=== PATIENT | male | born 1950 | race Caucasian/White ===

== ENCOUNTER → 2022-05-02 10:34 | Outpatient (CLI) | payer OTHER, SELFPAY ==
[2022-05-02 11:25] LABS: Influenza A - CEPHEID Flu A NEGATIVE (NEGATIVE); Influenza B - CEPHEID Flu B NEGATIVE (NEGATIVE); Respiratory Syncytial Virus Negative (Negative)
[2022-05-02 11:29] LABS: COVID-19 CEPHEID 4-PLEX PCR Negative (Negative)
== END ==
PROVIDERS: PCP Family Medicine; Visit Provider Physician Assistant Medical
DX: J06.9 Acute upper respiratory infection, unspecified (principal)
CPT/HCPCS: 0241U

== ENCOUNTER → 2022-05-10 07:13 | Outpatient (CLI) | payer OTHER, SELFPAY ==
[2022-05-10 08:03] LABS: Add Manual Diff / Slide Review NO; Basophils Absolute Auto 0 /uL (0-100); Basophils Percent Auto 0.6 % (0-2); Eosinophils Absolute Auto 200 /uL (0-450); Eosinophils Percent Auto 1.9 % (2-4); Hematocrit 42.1 % (41-53); Hemoglobin 14.5 g/dL (13.5-17.5); Lymphocytes Absolute Auto 2900 /uL (1100-4500); Lymphocytes Percent Auto 35.2 % (25-40); Mean Corpuscular HGB Conc 34.3 % (30-36); Mean Corpuscular Hemoglobin 31.6 PG (26-34); Monocytes Absolute Auto 700 /uL (0-900); Monocytes Percent Auto 8.9 % (3-14); Neutrophils Absolute Auto 4400 /uL (1500-7000); Neutrophils Percent Auto 53.4 % (50-75); Platelet Count 348 X10^3/uL (150-400); Red Blood Cell Count 4.58 X10^6/uL (4.5-5.9); Red Cell Distribution Width 13.6 % (11.6-14.8); White Blood Cell Count 8.2 X10^3/uL (4.5-11.0)
[2022-05-10 08:19] LABS: Hemoglobin A1C% w Est Avg Glu 5.7 % (4.0-6.0)
[2022-05-10 08:28] LABS: Alanine Aminotransferase 35 IU/L (<50); Albumin 4.4 g/dL (3.5-5.0); Albumin Globulin Ratio 1.5 (1.0-2.8); Alkaline Phosphatase 72 U/L (38-126); Aspartate Aminotransferase 29 IU/L (17-59); BUN Creatinine Ratio 11.9 (6-22); Bilirubin Total 0.8 mg/dL (0.2-1.3); Blood Urea Nitrogen 10 mg/dL (9-20); Calcium 9.5 mg/dL (8.4-10.2); Carbon Dioxide 27 mmol/L (22-32); Chloride 105 mmol/L (98-107); Cholesterol 143 mg/dL (140-199); Estimated Glomerular Filt Rate > 60 mL/min (>60); Globulin 2.9 g/dL (1.7-4.1); Glucose 102 mg/dL (80-110); HDL Cholesterol 44 mg/dL (40-60); HEMOLYSIS < 15 (0-50); LDL Cholesterol Calculated 67 mg/dL (<100); Potassium 4.5 mmol/L (3.4-5.1); Sodium 143 mmol/L (137-145); Total Protein 7.3 g/dL (6.3-8.2); Triglycerides 160 mg/dL (35-150)
[2022-05-10 08:58] LABS: Prostate Specific Antigen < 0.064 ng/mL (0.10-4.00)
== END ==
PROVIDERS: PCP Family Medicine; Referring Provider Family Medicine; Visit Provider Family Medicine
DX: E78.5 Hyperlipidemia, unspecified (principal); R73.03 Prediabetes; Z85.46 Personal history of malignant neoplasm of prostate; Z90.79 Acquired absence of other genital organ(s)
CPT/HCPCS: 36415; 80053; 80061; 83036; 84153; 85025

== ENCOUNTER → 2022-07-21 | Outpatient (CLI) | payer OTHER, SELFPAY ==
--- NOTE | 2022-07-21 23:40 | DI.NM.S_ITS ---
DATE OF SERVICE: 07/21/2022 PROCEDURE PERFORMED: Exercise treadmill stress and rest myocardial perfusion imaging with gating to assess ejection fraction and regional wall motion. ORDERING PROVIDER: Frank Pearson M.D. INDICATIONS: The patient is a 71-year-old hypertensive, hyperlipidemic male with atypical chest discomfort. CARDIAC STRESS: The patient was able to exercise for 6 minutes 21 seconds on a standard Byron protocol, suggesting mildly impaired exercise capacity with an JUNE of +9%, achieving 7.2 METS. He had a normal heart rate and blood pressure response to exercise, achieving a maximum heart rate of 151 bpm (100% of his predicted maximum). He had no chest discomfort or anginal symptoms. His resting ECG shows sinus rhythm with normal ST segments. There were no significant ST- segment shifts or arrhythmias with stress. At 5 minutes 15 seconds of exercise, at a heart rate of 142 bpm, 25.9 mCi of technetium-99m Myoview was injected and he was imaged 20 minutes later using a gated SPECT acquisition protocol. Earlier in the day while at rest, he had been injected with 12.6 mCi of technetium-99m Myoview was imaged 10 minutes later, again using a gated SPECT acquisition protocol. FINDINGS: 1. Raw data: There is good myocardial tracer uptake. The lung/heart ratio is normal at 0.26 with a normal TID ratio of 0.66. 2. Quantitated gated SPECT: Post stress ejection fraction is estimated at 85% without any focal wall motion abnormality. Resting ejection fraction is estimated at 72% with a normal at resting end-diastolic volume of 76 mL. 3. Myocardial perfusion imaging: Post stress supine images show a normal, uniform pattern of tracer activity without any perfusion defects, supported by normal perfusion imaging in the prone position. The resting images show an identical perfusion pattern without any areas of improvement. IMPRESSION: 1. Normal myocardial perfusion study. 2. No evidence of myocardial ischemia or previous myocardial infarction. 3. Normal left ventricular systolic function without focal wall motion abnormality. 4. Mildly impaired exercise capacity without angina or ECG evidence of ischemia. Juan Sanches - RS/janiya/ec doc#: [id number]/job#: [id number] dd: 07/21/2022 16:38:00 dt: 07/21/2022 23:14:00 DICTATING MD/COPIES TO: Lakhwinder Monzon MD; Frank Pearson M.D. COPIES MNE: ISAIAS
== END ==
PROVIDERS: Family Provider Family Medicine; PCP Family Medicine; Referring Provider Family Medicine; Visit Provider Family Medicine
DX: R07.89 Other chest pain (principal); I10 Essential (primary) hypertension; E78.5 Hyperlipidemia, unspecified
CPT/HCPCS: 78452; 93017; A9502

== ENCOUNTER 2022-07-28 13:45 | Outpatient (RCR) | payer OTHER, SELFPAY ==
--- NOTE | 2022-06-23 14:20 | PT.OPPOC ---
Physical, Occupational & Speech Therapy At [facility] Current Diagnoses Stress incontinence (female) (male) (06/23/22) Visit Care Team Role Provider Type Frank Pearson DO Family Provider Physician Primary Care Provider Specialty: Family Practice Address: [address] [place] [address], [id number] Email: Santana Mariscal MD Attending Provider Physician Referring Provider Specialty: Urology Address: [address] [place] [address], [address] Email: [email or web address] Plan Of Care PT-OP-T Assessment and Plan Start: 06/23/22 07:29 Freq: Status: Active Protocol: Document 06/23/22 11:15 AMB (Rec: 06/23/22 14:18 AMB [id number]) Physical Therapy Assessment Rehab Potential Rehabilitation Potential Good Evaluation Complexity Number of Personal Factors/Comorbidities 1-2 Number of Body Systems Impaired 1-2 Clinical Presentation at Evaluation Stable Impairments Impairments Pain,Strength Goals Two Impairment Continence Short Term Goal (STG) Juan will walk for 10 minutes without leaking. STG Duration 4 weeks Printing Machine Operator Goal (LTG) Juan will lift 10# from the floor to waist height without leaking. LTG Duration 10 weeks One Impairment Pelvic floor strength Short Term Goal (STG) Juan will improve his pelvic floor strenth to be able to contract his pelvic floor while moving from sit to stand . STG Duration 4 weeks Half-Way Goal (LTG) Juan will improve his pelvic floor strength so that he can contract his pelvic floor while getting up from the floor to prevent urinary leaking. LTG Duration 10 weeks Assessment Summary Assessment Juan attends physical therapy with worsening incontinence s /p prostatectomy in 2017. Incontinence is worst in the evenings, with multiple leaks caused by walking, lifting, floor transfers, cough/sneeze, although specifically denies leaking with sit to stand. Does note urgency and frequency have significantly worsened. Pt declined sEMG assessment at time of eval, states would prefer to work with exercises and then if not progressing would reconsider. Pt states that he thinks he can hold pelvic floor for 10 seconds in sitting, but has been inconsistent with exercise up to this point. Pt will benefit from PT to help strengthen his pelvic floor and further evaluate his intermittent pelvic pain, address any tightness that may be present and further educate in frequency and urgency. Physical Therapy Plan Frequency and Duration Frequency of Treatment 1x/Week Duration of treatment (weeks) 10 Plan of Care Start Date 06/23/22 Plan of Care End Date 09/01/22 Therapeutic Interventions Therapeutic Interventions Home Exercise Program,Manual Therapy,Neuromuscular Re- education,Self-Care/Home Management,Therapeutic Activities,Therapeutic Exercises Modalities Biofeedback,Electric Stimulation Next Visit Focus/Plan Next Note Type Treatment Note Next Visit Plan Review urge suppression, pelvic floor strengthening, inversion for pelvic floor rest, address stretching for pain Plan of Care Dates Plan of Care Start Date 06/23/22 Plan of Care End Date 09/01/22 Electronically Signed by: Yasmin Brown, PT 06/23/22 4723 If you are in agreement with this Plan of Care, please return a signed and dated copy. I have reviewed this Plan of Care and certify that the skilled therapy services above are required to meet the patient?s needs. Physician Signature Date Printed Name and Credentials Clinical Instructor Signature Printed Name and Credentials
--- NOTE | 2022-06-23 14:20 | PT.OIE ---
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 Episodic lightheadedness Erectile dysfunction after radical prostatectomy Fatigue Foot pain GERD (gastroesophageal reflux disease) Headache HTN (hypertension) Hx of malignant neoplasm of prostate Hyperlipidemia Intermittent left-sided chest pain Myalgia Pre-diabetes Prostate cancer (~2016) Shoulder pain Stress incontinence after surgical procedure Urinary incontinence, stress, male Past Surgical History (Last Updated 05/23/22 @ 21:03 by Savanah Morales) Anesthesia Benign tumor of esophagus (~1991) History of shoulder surgery (~09/2020) S/P prostatectomy (~05/2016) Visit Care Team Role Provider Type Frank Pearson DO Family Provider Physician Primary Care Provider Specialty: Family Practice Address: [address] [place] [address], [facility] Email: Santana Mariscal MD Attending Provider Physician Referring Provider Specialty: Urology Address: [address] [place] [address], [facility] Email: [email or web address] Physical Therapy Initial Evaluation PT-OP-A Visit Information Start: 06/23/22 07:29 Freq: Status: Active Protocol: Document 06/23/22 11:22 AMB (Rec: 06/23/22 11:44 AMB [id number]) Out-Patient Physical Therapy Visit Information Visit Information Visit Type Initial Evaluation Visit Start Time 11:15 Visit Stop Time 12:00 Total Visit Minutes 45 Visit Number 1 PT-OP-B Current Condition Start: 06/23/22 07:29 Freq: Status: Active Protocol: Document 06/23/22 11:22 AMB (Rec: 06/23/22 11:44 AMB [id number]) Current Condition History of Current Condition Onset Date 2016 Current Complaints incontinence s/p prostatectomy History of Current Condition Juan always had incontinence after his prostatectomy 5+ years ago, but over the past year it has significantly worsened. He reports changing incontinence products 5-6x in the evening, maybe 2-3 during the day. Going for a walk, lifting, some urgency all increase the leaking. Leaking more when tired. Nocturia- usually one time, sometimes 4-5x. In the last 10 months have noticed increasing urinray frequency, at sometimes 20-30 minutes, sometimes every 2 hours. Pt drinks coffee in the morning, drinks alcohol 3x/week. Doesn 't drink tea in the evening because has noticed that makes it worse. Pelvic floor pain- sharp intermittent just below pubic bone. Prior Functional Status Baseline Function- ADL's Independent Baseline Function- Mobility Independent Personal Factors Other Personal Factors That May Effect Hx of rotator cuff surgery on Therapy/Recovery the L PT-OP-C Subjective Start: 06/23/22 07:29 Freq: Status: Active Protocol: Document 06/23/22 11:15 AMB (Rec: 06/23/22 12:46 AMB [id number]) Patient Questionnaires Pelvic Pain and Urgency/Frequency Patient Symptom Scale Pelvic Pain Score 18 PT-OP-I Pelvic Floor Start: 06/23/22 07:29 Freq: Status: Active Protocol: Document 06/23/22 11:15 AMB (Rec: 06/23/22 12:46 AMB [id number]) Pelvic Floor Assessment Urine Pelvic Floor Surgery Yes: prostatectomy 2017 Urinary Symptoms Urge Sensation,Pain Leakage Size Medium Leakage Cause Cough,Exercise,Lifting,Sneeze, Urge Leaks Per Day 7 Voiding Frequency 30min-1hr Nocturia 1-5 Bowel Bowel Surgery No Bowel Movement Frequency daily Comments Pelvic Floor Comments Pt declines biofeedback or manual assessment at this time . States he can contract his pelvic floor for about 10 seconds in sitting and feel it relax at the end. PT-OP-T Assessment and Plan Start: 06/23/22 07:29 Freq: Status: Active Protocol: Document 06/23/22 11:15 AMB (Rec: 06/23/22 14:18 AMB [id number]) Physical Therapy Assessment Rehab Potential Rehabilitation Potential Good Evaluation Complexity Number of Personal Factors/Comorbidities 1-2 Number of Body Systems Impaired 1-2 Clinical Presentation at Evaluation Stable Impairments Impairments Pain,Strength Goals Two Impairment Continence Short Term Goal (STG) Juan will walk for 10 minutes without leaking. STG Duration 4 weeks Ore Trimmer Goal (LTG) Juan will lift 10# from the floor to waist height without leaking. LTG Duration 10 weeks One Impairment Pelvic floor strength Short Term Goal (STG) Juan will improve his pelvic floor strenth to be able to contract his pelvic floor while moving from sit to stand . STG Duration 4 weeks Ore Trimmer Goal (LTG) Juan will improve his pelvic floor strength so that he can contract his pelvic floor while getting up from the floor to prevent urinary leaking. LTG Duration 10 weeks Assessment Summary Assessment Juan attends physical therapy with worsening incontinence s /p prostatectomy in 2017. Incontinence is worst in the evenings, with multiple leaks caused by walking, lifting, floor transfers, cough/sneeze, although specifically denies leaking with sit to stand. Does note urgency and frequency have significantly worsened. Pt declined sEMG assessment at time of eval, states would prefer to work with exercises and then if not progressing would reconsider. Pt states that he thinks he can hold pelvic floor for 10 seconds in sitting, but has been inconsistent with exercise up to this point. Pt will benefit from PT to help strengthen his pelvic floor and further evaluate his intermittent pelvic pain, address any tightness that may be present and further educate in frequency and urgency. Physical Therapy Plan Frequency and Duration Frequency of Treatment 1x/Week Duration of treatment (weeks) 10 Plan of Care Start Date 06/23/22 Plan of Care End Date 09/01/22 Therapeutic Interventions Therapeutic Interventions Home Exercise Program,Manual Therapy,Neuromuscular Re- education,Self-Care/Home Management,Therapeutic Activities,Therapeutic Exercises Modalities Biofeedback,Electric Stimulation Next Visit Focus/Plan Next Note Type Treatment Note Next Visit Plan Review urge suppression, pelvic floor strengthening, inversion for pelvic floor rest, address stretching for pain
--- NOTE | 2022-06-30 10:54 | PT.OTN ---
Current Diagnoses Stress incontinence (female) (male) (06/30/22) Physical Therapy Treatment Note PT-OP-A Visit Information Start: 06/23/22 07:29 Freq: Status: Active Protocol: Document 06/30/22 09:44 AMB (Rec: 06/30/22 10:54 AMB [id number]) Out-Patient Physical Therapy Visit Information Visit Information Visit Type Treatment Note Visit Start Time 09:45 Visit Stop Time 10:30 Total Visit Minutes 45 Visit Number 2 PT-OP-B Current Condition Start: 06/23/22 07:29 Freq: Status: Active Protocol: Document 06/23/22 11:22 AMB (Rec: 06/23/22 11:44 AMB [id number]) Current Condition History of Current Condition Onset Date 2017 Current Complaints incontinence s/p prostatectomy History of Current Condition Juan always had incontinence after his prostatectomy 5+ years ago, but over the past year it has significantly worsened. He reports changing incontinence products 5-6x in the evening, maybe 2-3 during the day. Going for a walk, lifting, some urgency all increase the leaking. Leaking more when tired. Nocturia- usually one time, sometimes 4-5x. In the last 10 months have noticed increasing urinray frequency, at sometimes 20-30 minutes, sometimes every 2 hours. Pt drinks coffee in the morning, drinks alcohol 3x/week. Doesn 't drink tea in the evening because has noticed that makes it worse. Pelvic floor pain- sharp intermittent just below pubic bone. Prior Functional Status Baseline Function- ADL's Independent Baseline Function- Mobility Independent Personal Factors Other Personal Factors That May Effect Hx of rotator cuff surgery on Therapy/Recovery the L PT-OP-C Subjective Start: 06/23/22 07:29 Freq: Status: Active Protocol: Document 06/30/22 09:44 AMB (Rec: 06/30/22 10:54 AMB [id number]) OP-PT Subjective Patient Comments Patient Comments Juan has been working on doing his exercises. PT-OP-I Pelvic Floor Start: 06/23/22 07:29 Freq: Status: Active Protocol: Document 06/23/22 11:15 AMB (Rec: 06/23/22 12:46 AMB [id number]) Pelvic Floor Assessment Urine Pelvic Floor Surgery Yes: prostatectomy 2017 Urinary Symptoms Urge Sensation,Pain Leakage Size Medium Leakage Cause Cough,Exercise,Lifting,Sneeze, Urge Leaks Per Day 7 Voiding Frequency 30min-1hr Nocturia 1-5 Bowel Bowel Surgery No Bowel Movement Frequency daily Comments Pelvic Floor Comments Pt declines biofeedback or manual assessment at this time . States he can contract his pelvic floor for about 10 seconds in sitting and feel it relax at the end. PT-OP-Q Treatments Start: 06/23/22 07:29 Freq: Status: Active Protocol: Document 06/30/22 09:44 AMB (Rec: 06/30/22 10:54 AMB [id number]) Therapeutic Exercises Sitting Exercises roll in roll out Reps/Minutes 10 Standing Exercises lift Standing Exercise Name 10# from mini squat to stand Reps/Minutes 10 Comments cue pelvic floor/breath mini squat Reps/Minutes 10 mini lunges Reps/Minutes 10 PT-OP-T Assessment and Plan Start: 06/23/22 07:29 Freq: Status: Active Protocol: Document 06/30/22 09:44 AMB (Rec: 06/30/22 10:54 AMB [id number]) Physical Therapy Assessment Goals Two Impairment Continence Short Term Goal (STG) Juan will walk for 10 minutes without leaking. STG Duration 4 weeks Ribbon Weaver Goal (LTG) Juan will lift 10# from the floor to waist height without leaking. LTG Duration 10 weeks One Impairment Pelvic floor strength Short Term Goal (STG) Juan will improve his pelvic floor strenth to be able to contract his pelvic floor while moving from sit to stand . STG Duration 4 weeks Ribbon Weaver Goal (LTG) Juan will improve his pelvic floor strength so that he can contract his pelvic floor while getting up from the floor to prevent urinary leaking. LTG Duration 10 weeks Assessment Summary Assessment Juan was instructed in HEP progression. Did well at 10 am appointment but notices significantly more leaking in the afternoon. Physical Therapy Plan Frequency and Duration Frequency of Treatment 1x/Week Duration of treatment (weeks) 10 Plan of Care Start Date 06/23/22 Plan of Care End Date 09/01/22 Therapeutic Interventions Therapeutic Interventions Home Exercise Program,Manual Therapy,Neuromuscular Re- education,Self-Care/Home Management,Therapeutic Activities,Therapeutic Exercises Modalities Biofeedback,Electric Stimulation Next Visit Focus/Plan Next Note Type Treatment Note Next Visit Plan Review urge suppression, pelvic floor strengthening, inversion for pelvic floor rest, address stretching for pain
--- NOTE | 2022-07-28 21:34 | PT.OTN ---
Current Diagnoses Stress incontinence (female) (male) (07/28/22) Physical Therapy Treatment Note PT-OP-A Visit Information Start: 06/23/22 07:29 Freq: Status: Active Protocol: Document 07/28/22 13:50 AMB (Rec: 07/28/22 14:33 AMB [id number]) Out-Patient Physical Therapy Visit Information Visit Information Visit Type Treatment Note Visit Start Time 13:45 Visit Stop Time 14:30 Total Visit Minutes 45 Visit Number 3 PT-OP-B Current Condition Start: 06/23/22 07:29 Freq: Status: Active Protocol: Document 06/23/22 11:22 AMB (Rec: 06/23/22 11:44 AMB [id number]) Current Condition History of Current Condition Onset Date 2017 Current Complaints incontinence s/p prostatectomy History of Current Condition Juan always had incontinence after his prostatectomy 5+ years ago, but over the past year it has significantly worsened. He reports changing incontinence products 5-6x in the evening, maybe 2-3 during the day. Going for a walk, lifting, some urgency all increase the leaking. Leaking more when tired. Nocturia- usually one time, sometimes 4-5x. In the last 10 months have noticed increasing urinray frequency, at sometimes 20-30 minutes, sometimes every 2 hours. Pt drinks coffee in the morning, drinks alcohol 3x/week. Doesn 't drink tea in the evening because has noticed that makes it worse. Pelvic floor pain- sharp intermittent just below pubic bone. Prior Functional Status Baseline Function- ADL's Independent Baseline Function- Mobility Independent Personal Factors Other Personal Factors That May Effect Hx of rotator cuff surgery on Therapy/Recovery the L PT-OP-C Subjective Start: 06/23/22 07:29 Freq: Status: Active Protocol: Document 07/28/22 13:50 AMB (Rec: 07/28/22 14:33 AMB [id number]) OP-PT Subjective Patient Comments Patient Comments Has been doing exercises multiple times per days. PT-OP-I Pelvic Floor Start: 06/23/22 07:29 Freq: Status: Active Protocol: Document 06/23/22 11:15 AMB (Rec: 06/23/22 12:46 AMB [id number]) Pelvic Floor Assessment Urine Pelvic Floor Surgery Yes: prostatectomy 2017 Urinary Symptoms Urge Sensation,Pain Leakage Size Medium Leakage Cause Cough,Exercise,Lifting,Sneeze, Urge Leaks Per Day 7 Voiding Frequency 30min-1hr Nocturia 1-5 Bowel Bowel Surgery No Bowel Movement Frequency daily Comments Pelvic Floor Comments Pt declines biofeedback or manual assessment at this time . States he can contract his pelvic floor for about 10 seconds in sitting and feel it relax at the end. PT-OP-Q Treatments Start: 06/23/22 07:29 Freq: Status: Active Protocol: Document 07/28/22 13:50 AMB (Rec: 07/28/22 14:33 AMB [id number]) Therapeutic Exercises Standing Exercises single leg mini squat Standing Exercise Name with blue t band Comments with pelvic floor shoulder flexion Resistance 3# Comments with pelvic floor lift Standing Exercise Name 10# from mini squat to stand Reps/Minutes 10 Comments cue pelvic floor/breath mini squat Reps/Minutes 10 mini lunges Reps/Minutes 10 PT-OP-T Assessment and Plan Start: 06/23/22 07:29 Freq: Status: Active Protocol: Document 07/28/22 13:50 AMB (Rec: 07/28/22 14:33 AMB [id number]) Physical Therapy Assessment Goals Two Impairment Continence Short Term Goal (STG) Juan will walk for 10 minutes without leaking. STG Duration 4 weeks Skilled Nursing Goal (LTG) Juan will lift 10# from the floor to waist height without leaking. LTG Duration 10 weeks One Impairment Pelvic floor strength Short Term Goal (STG) Juan will improve his pelvic floor strenth to be able to contract his pelvic floor while moving from sit to stand . STG Duration 4 weeks Skilled Nursing Goal (LTG) Juan will improve his pelvic floor strength so that he can contract his pelvic floor while getting up from the floor to prevent urinary leaking. LTG Duration 10 weeks Assessment Summary Assessment Had been improving, but now feels like you had a bit of a backslide. Continues to really only have leaking in the evening, denies changes in diet, although stress has increased. Is doing exercises and especially thinking of palak muscles when moving from sit to aligning checker the evening but could be better. REcently got a script for his neck and shoulder and would prefer to work on that for now, so we are going to put a hold on this chart while he works on his neck and shoulder. Physical Therapy Plan Frequency and Duration Frequency of Treatment 1x/Week Duration of treatment (weeks) 10 Plan of Care Start Date 06/23/22 Plan of Care End Date 09/01/22 Therapeutic Interventions Therapeutic Interventions Home Exercise Program,Manual Therapy,Neuromuscular Re- education,Self-Care/Home Management,Therapeutic Activities,Therapeutic Exercises Modalities Biofeedback,Electric Stimulation Next Visit Focus/Plan Next Note Type Treatment Note Next Visit Plan Review urge suppression, pelvic floor strengthening, inversion for pelvic floor rest, address stretching for pain
--- NOTE | 2022-11-01 14:00 | PT.OPDS ---
Current Diagnoses Stress incontinence (female) (male) (07/28/22) Visit Care Team Role Provider Type Frank Pearson DO Family Provider Physician Primary Care Provider Specialty: Family Practice Address: [address] [place] [address], [id number] Email: Santana Mariscal MD Attending Provider Physician Referring Provider Specialty: Urology Address: [address] [place] [address], [id number] Email: [email or web address] Visit Number Visit Number 3 Discharge Summary PT-OP-B Current Condition Start: 06/23/22 07:29 Freq: Status: Active Protocol: Document 06/23/22 11:22 AMB (Rec: 06/23/22 11:44 AMB [id number]) Current Condition History of Current Condition Onset Date 2016 Current Complaints incontinence s/p prostatectomy History of Current Condition Juan always had incontinence after his prostatectomy 5+ years ago, but over the past year it has significantly worsened. He reports changing incontinence products 5-6x in the evening, maybe 2-3 during the day. Going for a walk, lifting, some urgency all increase the leaking. Leaking more when tired. Nocturia- usually one time, sometimes 4-5x. In the last 10 months have noticed increasing urinray frequency, at sometimes 20-30 minutes, sometimes every 2 hours. Pt drinks coffee in the morning, drinks alcohol 3x/week. Doesn 't drink tea in the evening because has noticed that makes it worse. Pelvic floor pain- sharp intermittent just below pubic bone. Prior Functional Status Baseline Function- ADL's Independent Baseline Function- Mobility Independent Personal Factors Other Personal Factors That May Effect Hx of rotator cuff surgery on Therapy/Recovery the L PT-OP-C Subjective Start: 06/23/22 07:29 Freq: Status: Active Protocol: Document 07/28/22 13:50 AMB (Rec: 07/28/22 14:33 AMB [id number]) OP-PT Subjective Patient Comments Patient Comments Has been doing exercises multiple times per days. PT-OP-I Pelvic Floor Start: 06/23/22 07:29 Freq: Status: Active Protocol: Document 06/23/22 11:15 AMB (Rec: 06/23/22 12:46 AMB [id number]) Pelvic Floor Assessment Urine Pelvic Floor Surgery Yes: prostatectomy 2017 Urinary Symptoms Urge Sensation,Pain Leakage Size Medium Leakage Cause Cough,Exercise,Lifting,Sneeze, Urge Leaks Per Day 7 Voiding Frequency 30min-1hr Nocturia 1-5 Bowel Bowel Surgery No Bowel Movement Frequency daily Comments Pelvic Floor Comments Pt declines biofeedback or manual assessment at this time . States he can contract his pelvic floor for about 10 seconds in sitting and feel it relax at the end. PT-OP-T Assessment and Plan Start: 06/23/22 07:29 Freq: Status: Active Protocol: Document 11/01/22 13:59 AMB (Rec: 11/01/22 14:00 AMB [id number]) Physical Therapy Assessment Goals Two Impairment Continence Short Term Goal (STG) Juan will walk for 10 minutes without leaking. STG Duration 4 weeks Fpc Goal (LTG) Juan will lift 10# from the floor to waist height without leaking. LTG Duration 10 weeks One Impairment Pelvic floor strength Short Term Goal (STG) Juan will improve his pelvic floor strenth to be able to contract his pelvic floor while moving from sit to stand . STG Duration 4 weeks Fpc Goal (LTG) Juan will improve his pelvic floor strength so that he can contract his pelvic floor while getting up from the floor to prevent urinary leaking. LTG Duration 10 weeks Assessment Summary Assessment Pt continued to have more leaking in the afternoon, not really during the day. Pt decided to be seen for his neck rather than pelivc floor and requested d/c from pelvic floor therapy. Physical Therapy Plan Discharge Physical Therapy Discharge Reasons Plateau in Progress
== END 2022-11-02 12:01 | disposition home or self-care (01) ==
LOC: PHYS 13:45
PROVIDERS: Family Provider Family Medicine; PCP Family Medicine; Referring Provider Urology; Visit Provider Urology
DX: N39.3 Stress incontinence (female) (male) (principal)
CPT/HCPCS: 97110; 97161

== ENCOUNTER 2022-08-30 13:30 | Outpatient (RCR) | payer OTHER, SELFPAY ==
--- NOTE | 2022-08-11 09:42 | PT.OPPOC ---
Physical, Occupational & Speech Therapy At [facility] Current Diagnoses Other chronic pain (08/11/22) Pain in unspecified shoulder (08/11/22) Radiculopathy, cervical region (08/11/22) Cervicalgia (08/11/22) Lumbago with sciatica, right side (08/11/22) Lumbago with sciatica, left side (08/11/22) Visit Care Team Role Provider Type Frank Pearson DO Attending Provider Physician Family Provider Primary Care Provider Referring Provider Specialty: Family Practice Address: [address] [place] [address], [facility] Email: Plan Of Care PT-OP-T Assessment and Plan Start: 08/07/22 08:25 Freq: Status: Active Protocol: Document 08/11/22 08:51 AMB (Rec: 08/11/22 09:32 AMB [id number]) Physical Therapy Assessment Rehab Potential Rehabilitation Potential Good Evaluation Complexity Number of Personal Factors/Comorbidities 0 Number of Body Systems Impaired 4 or More Clinical Presentation at Evaluation Stable Impairments Impairments Activity Tolerance,Pain,ROM, Strength Goals Pain Short Term Goal (STG) Juan will report a reduction of headache frequency to 1x/ month as related to a reduction in neck pain. STG Duration 5 weeks Retirement Goal (LTG) Juan will be independent with a HEP to improve his shoulder range and strength. LTG Duration 10 weeks One Impairment ROM- neck Short Term Goal (STG) Juan will show improved cervical rotation ROM bilaterally to 60 degrees. STG Duration 5 weeks Classified Ad Clerk Goal (LTG) Juan will improve his cervical flexion to 80 degrees without pain. LTG Duration 10 weeks Assessment Summary Assessment Juan attends physical therapy with chronic neck and back pain with increasing left shoulder pain s/p rotator cuff repair. He does show weakness in the shoulder, especially supraspinatus. He has significant tightness in his cervical spine and had pain with manual to work on improving his range of motion. He will benefit from PT to improve his shoulder strength and cervical range of motion. We will address his back as able, as that was the lowest priority for him. Physical Therapy Plan Frequency and Duration Frequency of Treatment 1x/Week Duration of treatment (weeks) 10 Plan of Care Start Date 08/11/22 Plan of Care End Date 10/20/22 Therapeutic Interventions Therapeutic Interventions Home Exercise Program,Manual Therapy,Neuromuscular Re- education,Self-Care/Home Management,Therapeutic Activities,Therapeutic Exercises Modalities Cold Pack/Ice Massage,Electric Stimulation,Hot Packs Next Visit Focus/Plan Next Note Type Treatment Note Next Visit Plan establish shoulder strengthening HEP, cervical ROM, chin tuck Plan of Care Dates Plan of Care Start Date 08/11/22 Plan of Care End Date 10/20/22 Electronically Signed by: Yasmin Brown, PT 08/15/22 0942 If you are in agreement with this Plan of Care, please return a signed and dated copy. I have reviewed this Plan of Care and certify that the skilled therapy services above are required to meet the patient?s needs. Physician Signature Date Printed Name and Credentials Clinical Instructor Signature Printed Name and Credentials
--- NOTE | 2022-08-11 09:42 | PT.OIE ---
Current Diagnoses Other chronic pain (08/11/22) Pain in unspecified shoulder (08/11/22) Radiculopathy, cervical region (08/11/22) Cervicalgia (08/11/22) Lumbago with sciatica, right side (08/11/22) Lumbago with sciatica, left side (08/11/22) Past Medical History (Last Updated 07/28/22 @ 13:16 by Frank Pearson DO) Acute bacterial sinusitis Arthralgia Atypical chest pain Bilateral ankle pain Bilateral thumb pain Cervical radicular pain Cervical somatic dysfunction Chronic low back pain with bilateral sciatica Chronic neck pain Cranial somatic dysfunction Disorder of left rotator cuff Episodic lightheadedness Erectile dysfunction after radical prostatectomy Fatigue Foot pain GERD (gastroesophageal reflux disease) Headache HTN (hypertension) Hx of malignant neoplasm of prostate Hyperlipidemia Myalgia Pre-diabetes Prostate cancer (~2016) Segmental and somatic dysfunction of rib cage Shoulder pain Stress incontinence after surgical procedure Thoracic region somatic dysfunction Upper extremity somatic dysfunction Urinary incontinence, stress, male Past Surgical History (Last Updated 05/23/22 @ 21:03 by Savanah Morales) Anesthesia Benign tumor of esophagus (~1991) History of shoulder surgery (~09/2020) S/P prostatectomy (~05/2016) Visit Care Team Role Provider Type Frank Pearson DO Attending Provider Physician Family Provider Primary Care Provider Referring Provider Specialty: Family Practice Address: [address] [place] [address], [facility] Email: Physical Therapy Initial Evaluation PT-OP-A Visit Information Start: 08/07/22 08:25 Freq: Status: Active Protocol: Document 08/11/22 07:31 AMB (Rec: 08/11/22 08:23 AMB [id number]) Out-Patient Physical Therapy Visit Information Visit Information Visit Type Initial Evaluation Visit Start Time 07:30 Visit Stop Time 08:15 Total Visit Minutes 45 Visit Number 1 PT-OP-B Current Condition Start: 08/07/22 08:25 Freq: Status: Active Protocol: Document 08/11/22 07:31 AMB (Rec: 08/11/22 08:23 AMB [id number]) Current Condition History of Current Condition Onset Date chronic Current Complaints L shoulder, neck, back History of Current Condition L shoulder had rotator cuff surgery 2 years ago. Pain has been getting worse. Neck pain has been a problem for years, getting worse. Neck pain can cause headaches and radiate into the arm but denies numbness/tingling in the hand. In the last year was having daily headaches but now has improved to weekly. Prior Treatments and Tests Chiropracter took Xrays a long time ago, pt thinks there was a bone spur somewhere, no imaging here. Personal Factors Other Personal Factors That May Effect Rotator cuff surgery September 2020 Therapy/Recovery , prostate May 2016 PT-OP-C Subjective Start: 08/07/22 08:25 Freq: Status: Active Protocol: Document 08/11/22 08:51 AMB (Rec: 08/11/22 09:32 AMB [id number]) OP-PT Subjective Patient Comments Patient Comments 4/10 pain in neck, 5/10 pain in L shoulder/upper trap Patient Questionnaires Neck Disability Index NDI Score 15 Neck Disability Index Impairment 20 to 39% Impaired (Score 10- 19) Quick Dash- Upper Extremity Quick Dash UE Score 25 Quick Dash UE Impairment 20 to 39% Impaired (Score 20- 39) PT-OP-K Range of Motion Start: 08/07/22 08:25 Freq: Status: Active Protocol: Document 08/11/22 07:31 AMB (Rec: 08/11/22 08:23 AMB [id number]) Cervical Spine Range of Motion Cervical Spine Active Degrees Flexion 50 Extension 28 Rotation Left 60 Rotation Right 40 Lateral Flexion Left 10 Lateral Flexion Right 10 Shoulder Goniometric Range of Motion Shoulder Left Active Flexion 150 Abduction 130 PT-OP-M Strength Start: 08/07/22 08:25 Freq: Status: Active Protocol: Document 08/11/22 07:31 AMB (Rec: 08/11/22 08:23 AMB [id number]) Shoulder Strength Shoulder Manual Muscle Testing Left Flexion 4+ Good+ Abduction (C5) 4 Good External Rotation 4- Good- Internal Rotation 4 Good PT-OP-T Assessment and Plan Start: 08/07/22 08:25 Freq: Status: Active Protocol: Document 08/11/22 08:51 AMB (Rec: 08/11/22 09:32 AMB [id number]) Physical Therapy Assessment Rehab Potential Rehabilitation Potential Good Evaluation Complexity Number of Personal Factors/Comorbidities 0 Number of Body Systems Impaired 4 or More Clinical Presentation at Evaluation Stable Impairments Impairments Activity Tolerance,Pain,ROM, Strength Goals Pain Short Term Goal (STG) Juan will report a reduction of headache frequency to 1x/ month as related to a reduction in neck pain. STG Duration 5 weeks Care Home Goal (LTG) Juan will be independent with a HEP to improve his shoulder range and strength. LTG Duration 10 weeks One Impairment ROM- neck Short Term Goal (STG) Juan will show improved cervical rotation ROM bilaterally to 60 degrees. STG Duration 5 weeks Furniture And Bedding Inspector Goal (LTG) Juan will improve his cervical flexion to 80 degrees without pain. LTG Duration 10 weeks Assessment Summary Assessment Juan attends physical therapy with chronic neck and back pain with increasing left shoulder pain s/p rotator cuff repair. He does show weakness in the shoulder, especially supraspinatus. He has significant tightness in his cervical spine and had pain with manual to work on improving his range of motion. He will benefit from PT to improve his shoulder strength and cervical range of motion. We will address his back as able, as that was the lowest priority for him. Physical Therapy Plan Frequency and Duration Frequency of Treatment 1x/Week Duration of treatment (weeks) 10 Plan of Care Start Date 08/11/22 Plan of Care End Date 10/20/22 Therapeutic Interventions Therapeutic Interventions Home Exercise Program,Manual Therapy,Neuromuscular Re- education,Self-Care/Home Management,Therapeutic Activities,Therapeutic Exercises Modalities Cold Pack/Ice Massage,Electric Stimulation,Hot Packs Next Visit Focus/Plan Next Note Type Treatment Note Next Visit Plan establish shoulder strengthening HEP, cervical ROM, chin tuck
--- NOTE | 2022-08-16 15:48 | PT.OTN ---
Current Diagnoses Other chronic pain (08/16/22) Pain in unspecified shoulder (08/16/22) Radiculopathy, cervical region (08/16/22) Cervicalgia (08/16/22) Lumbago with sciatica, right side (08/16/22) Lumbago with sciatica, left side (08/16/22) Physical Therapy Treatment Note PT-OP-A Visit Information Start: 08/07/22 08:25 Freq: Status: Active Protocol: Document 08/16/22 14:32 AMB (Rec: 08/16/22 15:48 AMB [id number]) Out-Patient Physical Therapy Visit Information Visit Information Visit Type Treatment Note Visit Start Time 14:30 Visit Stop Time 15:15 Total Visit Minutes 45 Visit Number 2 PT-OP-B Current Condition Start: 08/07/22 08:25 Freq: Status: Active Protocol: Document 08/11/22 07:31 AMB (Rec: 08/11/22 08:23 AMB [id number]) Current Condition History of Current Condition Onset Date chronic Current Complaints L shoulder, neck, back History of Current Condition L shoulder had rotator cuff surgery 2 years ago. Pain has been getting worse. Neck pain has been a problem for years, getting worse. Neck pain can cause headaches and radiate into the arm but denies numbness/tingling in the hand. In the last year was having daily headaches but now has improved to weekly. Prior Treatments and Tests Chiropracter took Xrays a long time ago, pt thinks there was a bone spur somewhere, no imaging here. Personal Factors Other Personal Factors That May Effect Rotator cuff surgery September 2020 Therapy/Recovery , prostate May 2016 PT-OP-C Subjective Start: 08/07/22 08:25 Freq: Status: Active Protocol: Document 08/16/22 14:32 AMB (Rec: 08/16/22 15:48 AMB [id number]) OP-PT Subjective Patient Comments Patient Comments 4/10 pain in neck felt better after PT-OP-K Range of Motion Start: 08/07/22 08:25 Freq: Status: Active Protocol: Document 08/11/22 07:31 AMB (Rec: 08/11/22 08:23 AMB [id number]) Cervical Spine Range of Motion Cervical Spine Active Degrees Flexion 50 Extension 28 Rotation Left 60 Rotation Right 40 Lateral Flexion Left 10 Lateral Flexion Right 10 Shoulder Goniometric Range of Motion Shoulder Left Active Flexion 150 Abduction 130 PT-OP-M Strength Start: 08/07/22 08:25 Freq: Status: Active Protocol: Document 08/11/22 07:31 AMB (Rec: 08/11/22 08:23 AMB [id number]) Shoulder Strength Shoulder Manual Muscle Testing Left Flexion 4+ Good+ Abduction (C5) 4 Good External Rotation 4- Good- Internal Rotation 4 Good PT-OP-Q Treatments Start: 08/07/22 08:25 Freq: Status: Active Protocol: Document 08/16/22 14:32 AMB (Rec: 08/16/22 15:48 AMB [id number]) Therapeutic Exercises Supine Exercises open book Reps/Minutes 5 Sitting Exercises chin tuck Reps/Minutes 5x5 Comments heavy verbal and physical cues levator scap stretch Reps/Minutes 30x2 Standing Exercises scap retract Standing Exercise Name blue theraband Manual Therapy Treatment Soft Tissue Mobilization neck/shoulder Body Location R upper trap/levator scap Comments with mild neck flexion and working into rotation PT-OP-T Assessment and Plan Start: 08/07/22 08:25 Freq: Status: Active Protocol: Document 08/16/22 14:32 AMB (Rec: 08/16/22 15:48 AMB [id number]) Physical Therapy Assessment Goals Pain Short Term Goal (STG) Juan will report a reduction of headache frequency to 1x/ month as related to a reduction in neck pain. STG Duration 5 weeks Custodial Goal (LTG) Juan will be independent with a HEP to improve his shoulder range and strength. LTG Duration 10 weeks One Impairment ROM- neck Short Term Goal (STG) Juan will show improved cervical rotation ROM bilaterally to 60 degrees. STG Duration 5 weeks Custodial Goal (LTG) Juan will improve his cervical flexion to 80 degrees without pain. LTG Duration 10 weeks Physical Therapy Plan Frequency and Duration Frequency of Treatment 1x/Week Duration of treatment (weeks) 10 Plan of Care Start Date 08/11/22 Plan of Care End Date 10/20/22 Therapeutic Interventions Therapeutic Interventions Home Exercise Program,Manual Therapy,Neuromuscular Re- education,Self-Care/Home Management,Therapeutic Activities,Therapeutic Exercises Modalities Cold Pack/Ice Massage,Electric Stimulation,Hot Packs Next Visit Focus/Plan Next Note Type Treatment Note Next Visit Plan establish shoulder strengthening HEP, cervical ROM, chin tuck
--- NOTE | 2022-08-30 12:57 | PT.OTN ---
Current Diagnoses Other chronic pain (08/30/22) Pain in unspecified shoulder (08/30/22) Radiculopathy, cervical region (08/30/22) Cervicalgia (08/30/22) Lumbago with sciatica, right side (08/30/22) Lumbago with sciatica, left side (08/30/22) Physical Therapy Treatment Note PT-OP-A Visit Information Start: 08/07/22 08:25 Freq: Status: Active Protocol: Document 08/30/22 13:13 AMB (Rec: 08/30/22 14:44 AMB [id number]) Out-Patient Physical Therapy Visit Information Visit Information Visit Type Treatment Note Visit Start Time 13:15 Visit Stop Time 14:00 Total Visit Minutes 45 Visit Number 3 PT-OP-B Current Condition Start: 08/07/22 08:25 Freq: Status: Active Protocol: Document 08/11/22 07:31 AMB (Rec: 08/11/22 08:23 AMB [id number]) Current Condition History of Current Condition Onset Date chronic Current Complaints L shoulder, neck, back History of Current Condition L shoulder had rotator cuff surgery 2 years ago. Pain has been getting worse. Neck pain has been a problem for years, getting worse. Neck pain can cause headaches and radiate into the arm but denies numbness/tingling in the hand. In the last year was having daily headaches but now has improved to weekly. Prior Treatments and Tests Chiropracter took Xrays a long time ago, pt thinks there was a bone spur somewhere, no imaging here. Personal Factors Other Personal Factors That May Effect Rotator cuff surgery September 2020 Therapy/Recovery , prostate May 2016 PT-OP-C Subjective Start: 08/07/22 08:25 Freq: Status: Active Protocol: Document 08/30/22 13:13 AMB (Rec: 08/30/22 14:44 AMB [id number]) OP-PT Subjective Patient Comments Patient Comments Back, shoulder, neck all about the same Patient Reported Progress Same PT-OP-K Range of Motion Start: 08/07/22 08:25 Freq: Status: Active Protocol: Document 08/11/22 07:31 AMB (Rec: 08/11/22 08:23 AMB [id number]) Cervical Spine Range of Motion Cervical Spine Active Degrees Flexion 50 Extension 28 Rotation Left 60 Rotation Right 40 Lateral Flexion Left 10 Lateral Flexion Right 10 Shoulder Goniometric Range of Motion Shoulder Left Active Flexion 150 Abduction 130 PT-OP-M Strength Start: 08/07/22 08:25 Freq: Status: Active Protocol: Document 08/11/22 07:31 AMB (Rec: 08/11/22 08:23 AMB [id number]) Shoulder Strength Shoulder Manual Muscle Testing Left Flexion 4+ Good+ Abduction (C5) 4 Good External Rotation 4- Good- Internal Rotation 4 Good PT-OP-Q Treatments Start: 08/07/22 08:25 Freq: Status: Active Protocol: Document 08/30/22 13:13 AMB (Rec: 08/30/22 14:44 AMB [id number]) Therapeutic Exercises Supine Exercises open book Reps/Minutes 5 Sitting Exercises chin tuck Reps/Minutes 5x5 Comments heavy verbal and physical cues levator scap stretch Reps/Minutes 30x2 Standing Exercises scap retract Standing Exercise Name blue theraband Manual Therapy Treatment Soft Tissue Mobilization neck/shoulder Body Location R upper trap/levator scap Comments with mild neck flexion and working into rotation Joint Mobilizations 1 Joint C3-7 Direction UPA Grade II Reps/Duration 2x10 PT-OP-T Assessment and Plan Start: 08/07/22 08:25 Freq: Status: Active Protocol: Document 08/30/22 13:13 AMB (Rec: 08/30/22 14:44 AMB [id number]) Physical Therapy Assessment Goals Pain Short Term Goal (STG) Juan will report a reduction of headache frequency to 1x/ month as related to a reduction in neck pain. STG Duration 5 weeks Product Marketing Intern Goal (LTG) Juan will be independent with a HEP to improve his shoulder range and strength. LTG Duration 10 weeks One Impairment ROM- neck Short Term Goal (STG) Juan will show improved cervical rotation ROM bilaterally to 60 degrees. R: 55, L 60 STG Duration 5 weeks Product Marketing Intern Goal (LTG) Juan will improve his cervical flexion to 80 degrees without pain. LTG Duration Chin to chest 65 Assessment Summary Assessment Juan has not noticed a significant improvement in his symptoms but his ROM for cervical rotation has improved , continues to have pain with it. He feels ready for discharge. Physical Therapy Plan Frequency and Duration Frequency of Treatment 1x/Week Duration of treatment (weeks) 10 Plan of Care Start Date 08/11/22 Plan of Care End Date 10/20/22 Therapeutic Interventions Therapeutic Interventions Home Exercise Program,Manual Therapy,Neuromuscular Re- education,Self-Care/Home Management,Therapeutic Activities,Therapeutic Exercises Modalities Cold Pack/Ice Massage,Electric Stimulation,Hot Packs Next Visit Focus/Plan Next Note Type Treatment Note Next Visit Plan establish shoulder strengthening HEP, cervical ROM, chin tuck
== END 2022-11-02 14:01 | disposition home or self-care (01) ==
LOC: PHYS 13:30
PROVIDERS: Family Provider Family Medicine; PCP Family Medicine; Referring Provider Family Medicine; Visit Provider Family Medicine
DX: M54.2 Cervicalgia (principal); M54.41 Lumbago with sciatica, right side; M54.42 Lumbago with sciatica, left side; G89.29 Other chronic pain; M25.519 Pain in unspecified shoulder; M54.12 Radiculopathy, cervical region
CPT/HCPCS: 97110; 97140; 97161